=== PATIENT | female | born 1990 | race Caucasian/White ===

== ENCOUNTER → 2019-09-08 09:21 | Outpatient (CLI) | payer OTHER, SELFPAY ==
[2019-09-08 11:02] LABS: Estradiol 142.8 pg/mL; Thyroid Stim Hormone (TSH) 1.02 uIU/mL (0.358-3.74)
[2019-09-08 11:13] LABS: Progesterone Level 41.78 ng/mL (See Comment); Rubella IgG > 500.0 IU/mL
[2019-09-11 13:18] LABS: V-Zoster IgG (Immunity) 1038 index (Immune >165)
== END ==
DX: N94.6 Dysmenorrhea, unspecified (principal); N92.0 Excessive and frequent menstruation with regular cycle; N93.9 Abnormal uterine and vaginal bleeding, unspecified
CPT/HCPCS: 36415; 82670; 84144; 84443; 86762; 86787

== ENCOUNTER → 2020-04-13 09:14 | Outpatient (CLI) | payer OTHER, SELFPAY ==
[2020-04-13 10:44] LABS: hCG Titer Quant., Serum 6373 mIU/mL (1-3)
[2020-04-13 13:46] LABS: Progesterone Level 22.12 ng/mL (See Comment)
== END ==
DX: Z32.01 Encounter for pregnancy test, result positive (principal)
CPT/HCPCS: 36415; 84144; 84702

== ENCOUNTER → 2020-04-15 09:26 | Outpatient (CLI) | payer OTHER, SELFPAY ==
[2020-04-15 11:36] LABS: hCG Titer Quant., Serum 12108 mIU/mL (1-3)
== END ==
DX: Z32.01 Encounter for pregnancy test, result positive (principal)
CPT/HCPCS: 36415; 84702

== ENCOUNTER → 2020-05-18 09:59 | Outpatient (CLI) | payer OTHER, SELFPAY ==
[2020-05-18 11:34] LABS: Progesterone Level 44.65 ng/mL (See Comment)
== END ==
DX: E34.9 Endocrine disorder, unspecified (principal)
CPT/HCPCS: 36415; 84144

== ENCOUNTER 2020-06-08 15:12 | Outpatient (RCR) | payer OTHER, SELFPAY ==
[2020-06-08 16:24] LABS: Progesterone Level 53.29 ng/mL (See Comment)
== END 2020-06-12 18:00 | disposition home or self-care (01) ==
LOC: LAB 15:12
DX: E34.9 Endocrine disorder, unspecified (principal)
CPT/HCPCS: 36415; 84144

== ENCOUNTER 2020-06-22 13:06 | Outpatient (RCR) | payer OTHER, SELFPAY | END 2020-07-12 23:59 | LOC: NS 13:06 | PROVIDERS: Visit Provider Obstetrics & Gynecology | DX: Z71.3 Dietary counseling and surveillance (principal); O26.10 Low weight gain in pregnancy, unspecified trimester; O99.340 Other mental disorders complicating pregnancy, unspecified trimester; F50.9 Eating disorder, unspecified; Z3A.00 Weeks of gestation of pregnancy not specified | CPT/HCPCS: 97802 ==

== ENCOUNTER 2020-06-22 14:40 | Outpatient (RCR) | payer OTHER, SELFPAY | END 2020-06-22 18:00 | disposition home or self-care (01) | LOC: LAB 14:40 | DX: E34.9 Endocrine disorder, unspecified (principal) | CPT/HCPCS: 36415; 84144 ==

== ENCOUNTER 2020-07-18 15:27 | Outpatient (RCR) | payer OTHER, SELFPAY | END 2020-08-12 23:59 | LOC: NS 15:27 | PROVIDERS: Visit Provider Obstetrics & Gynecology | DX: Z71.3 Dietary counseling and surveillance (principal); O26.10 Low weight gain in pregnancy, unspecified trimester; O99.340 Other mental disorders complicating pregnancy, unspecified trimester; F50.9 Eating disorder, unspecified; Z3A.00 Weeks of gestation of pregnancy not specified | CPT/HCPCS: 97803 ==

== ENCOUNTER → 2020-07-20 11:35 | Outpatient (CLI) | payer OTHER, SELFPAY | PROVIDERS: Referring Provider Obstetrics & Gynecology; Visit Provider Obstetrics & Gynecology | DX: E34.9 Endocrine disorder, unspecified (principal) | CPT/HCPCS: 36415 ==

== ENCOUNTER 2020-08-03 09:26 | Outpatient (RCR) | payer OTHER, SELFPAY | END 2020-08-03 18:00 | disposition home or self-care (01) | LOC: LAB 09:26 | DX: E34.9 Endocrine disorder, unspecified (principal) | CPT/HCPCS: 36415 ==

== ENCOUNTER 2020-08-17 16:38 | Outpatient (RCR) | payer OTHER, SELFPAY | END 2020-09-11 23:59 | LOC: NS 16:38 | PROVIDERS: Visit Provider Obstetrics & Gynecology | DX: Z71.3 Dietary counseling and surveillance (principal); O26.10 Low weight gain in pregnancy, unspecified trimester; Z3A.00 Weeks of gestation of pregnancy not specified | CPT/HCPCS: 97803 ==

== ENCOUNTER 2020-08-31 13:43 | Outpatient (RCR) | payer OTHER, SELFPAY | END 2020-08-31 18:00 | disposition home or self-care (01) | LOC: LAB 13:43 | DX: E34.9 Endocrine disorder, unspecified (principal) | CPT/HCPCS: 36415 ==

== ENCOUNTER 2020-09-21 10:41 | Outpatient (RCR) | payer OTHER, SELFPAY | END 2020-09-21 18:00 | disposition home or self-care (01) | LOC: LAB 10:41 | PROVIDERS: Referring Provider Obstetrics & Gynecology; Visit Provider Obstetrics & Gynecology | DX: E34.9 Endocrine disorder, unspecified (principal) | CPT/HCPCS: 36415 ==

== ENCOUNTER → 2021-08-16 09:17 | Outpatient (CLI) | payer OTHER, SELFPAY ==
[2021-08-16 10:51] LABS: Cholesterol 180 mg/dL (200); Glucose 75 mg/dL (74-106); High Density Lipoprotein 75 mg/dL; Triglycerides 39 mg/dL; Very Low Density Lipoprotein 8 mg/dL (5-40)
== END ==
PROVIDERS: PCP Family Medicine; Referring Provider Family Medicine; Visit Provider Family Medicine
DX: Z00.00 Encounter for general adult medical examination without abnormal findings (principal)
CPT/HCPCS: 36415; 80061; 82947

== ENCOUNTER → 2021-09-26 16:12 | Outpatient (CLI) | payer OTHER, SELFPAY ==
[2021-09-26 17:29] LABS: Absolute Lymphocyte Count 1.99 X10^3/uL (0.83-4.51); Absolute Neutrophil Count 4.1 X10^3/uL (2.0-7.7); Basophil# 0.03 X10^3/uL; Basophil% 0.4 % (0-1); Eosinophil# 0.14 X10^3/uL; Eosinophils% 2.1 % (0-5); Hematocrit 38.9 % (37-47); Lymphocyte # 1.99 X10^3/ul (0.83-4.51); Lymphocyte % 29.4 % (19-41); Mean Corp Hgb Conc 33.4 g/dL (32-36); Mean Corpuscular Hgb 30.2 pg (27.0-32.0); Mean Corpuscular Volume 90.3 fL (81-99); Mean Platelet Vol. 10.9 fl (6.2-12.0); Monocyte# 0.48 X10^3/uL; Monocyte% 7.1 % (0-10); NRBC Flagged by Analyzer 0 % (0-5); Neutrophil # 4.12 X10^3/uL (2.7-7.7); Neutrophil % 60.7 % (47-70); Platelet Count 277 K/mm3 (150-450); RBC Distribution Width CV 12.3 % (11.6-14.6); RBC Distribution Width SD 41.1 fl (35.1-43.9); RET-HE 35.3 pg (30-35); Red Blood Count 4.31 M/mm3 (4.2-5.4); White Blood Count 6.8 K/mm3 (4.4-11.0)
[2021-09-26 17:46] LABS: Vitamin B12 880 pg/mL (211-911)
[2021-09-26 18:24] LABS: AST(SGOT) 15 U/L (15-37); Alanine Aminotransfer ALT/SGPT 22 U/L (13-56); Albumin, Serum 3.8 g/dL (3.2-5.0); Alkaline Phosphatase 105 U/L (45-117); Anion Gap 7 (5-15); BUN 15 mg/dL (7-18); BUN/Creat Ratio 20.5 RATIO (10-20); Bilirubin, Direct 0.09 mg/dL (0.00-0.30); Calcium,Total 8.9 mg/dL (8.5-10.1); Chloride 105 mmol/L (98-107); Creatinine, Serum 0.73 mg/dL (0.55-1.02); EST Glomerular Filtration Rate 97 mL/min (>60); Est Glom Filt Rate - Afr Amer 118 mL/min (>60); Ferritin 82 ng/mL (8-252); Free T3 2.5 pg/mL (2.18-3.98); Globulin 3.9 g/dL (2.2-4.2); Glucose 80 mg/dL (74-106); Iron 72 ug/dL (50-170); Iron Binding Capacity,Total 344 ug/dL (250-450); Magnesium 2.5 mg/dL (1.6-2.6); PERCENT IRON SATURATION 20.9 % (15.0-55.0); Potassium 3.9 mmol/L (3.5-5.1); Protein, Total 7.7 g/dL (6.4-8.2); Sodium Level 138 mmol/L (136-145); T4 Free Direct 1.15 ng/dL (0.76-1.46); Thyroid Stim Hormone (TSH) 0.93 uIU/mL (0.358-3.74)
[2021-09-28 15:08] LABS: Endomysial Antibody IgA Negative (Negative)
[2021-09-28 16:43] LABS: Immunoglobulin A 113 mg/dL (87-352); t-Transglutaminase IgA <2 U/mL (0-3)
[2021-09-30 13:11] LABS: Vitamin D 1,25-Dihydroxy 63.7 pg/mL (19.9-79.3)
[2021-10-01 14:00] LABS: CRP < 2.90 mg/L (0.0-3.0); LDH 283 U/L (84-246)
== END ==
PROVIDERS: PCP Family Medicine; Visit Provider Nurse Practitioner Adult Health
DX: K90.0 Celiac disease (principal)
CPT/HCPCS: 36415; 80048; 80076; 82607; 82652; 82728; 82746; 82784; 83516; 83540; 83550; 83615; 83735; 84439; 84443; 84481; 85025; 85045; 86140; 86255

== ENCOUNTER → 2021-10-11 15:08 | Outpatient (CLI) | payer OTHER, SELFPAY ==
[2021-10-11 16:01] LABS: Erythrocyte Sedimentation Rate 3 mm/hr (0-30)
[2021-10-11 16:24] LABS: LDH 157 U/L (84-246)
== END ==
PROVIDERS: PCP Family Medicine; Visit Provider Nurse Practitioner Adult Health
DX: R74.02 Elevation of levels of lactic acid dehydrogenase [LDH] (principal)
CPT/HCPCS: 36415; 83615; 85652

== ENCOUNTER 2023-06-10 09:24 | Outpatient (RCR) | payer OTHER, SELFPAY ==
[2023-05-13 12:55] LABS: Progesterone Level 39.97 ng/mL (See Comment)
[2023-05-27 08:15] LABS: Progesterone Level 22.69 ng/mL (See Comment)
[2023-06-10 10:42] LABS: Progesterone Level 24.73 ng/mL (See Comment)
== END 2023-06-10 18:00 | disposition home or self-care (01) ==
LOC: LAB 09:24
PROVIDERS: PCP Family Medicine; Referring Provider Obstetrics & Gynecology; Visit Provider Obstetrics & Gynecology
DX: Z86.39 Personal history of other endocrine, nutritional and metabolic disease (principal)
CPT/HCPCS: 36415; 84144

== ENCOUNTER → 2023-06-18 | Outpatient (CLI) | payer OTHER, SELFPAY ==
[2023-06-19 20:07] LABS: Chlamydia By Nucleic Acid AMP Negative (Negative); Gonococcus By Nucleic Acid AMP Negative (Negative)
== END | disposition home or self-care (01) ==
LOC: LABSPEC 11:18
PROVIDERS: PCP Family Medicine; Referring Provider Registered Nurse; Visit Provider Registered Nurse
DX: Z34.90 Encounter for supervision of normal pregnancy, unspecified, unspecified trimester (principal)
CPT/HCPCS: 87086; 87088; 87491; 87591

== ENCOUNTER 2023-07-08 09:22 | Outpatient (RCR) | payer OTHER, SELFPAY ==
[2023-06-24 09:22] LABS: Absolute Lymphocyte Count 1.95 X10^3/uL (0.83-4.51); Absolute Neutrophil Count 3.1 X10^3/uL (2.0-7.7); Basophil# 0.02 X10^3/uL; Basophil% 0.4 % (0-1); Eosinophil# 0.18 X10^3/uL; Eosinophils% 3.2 % (0-5); Hematocrit 37.5 % (37-47); Lymphocyte # 1.95 X10^3/ul (0.83-4.51); Lymphocyte % 34.8 % (19-41); Mean Corp Hgb Conc 34.7 g/dL (32-36); Mean Corpuscular Hgb 30.6 pg (27.0-32.0); Mean Corpuscular Volume 88.2 fL (81-99); Monocyte# 0.34 X10^3/uL; Monocyte% 6.1 % (0-10); NRBC Flagged by Analyzer 0 % (0-5); Neutrophil # 3.09 X10^3/uL (2.7-7.7); Neutrophil % 55.1 % (47-70); Platelet Count 249 K/mm3 (150-450); Red Blood Count 4.25 M/mm3 (4.2-5.4); White Blood Count 5.6 K/mm3 (4.4-11.0)
[2023-06-24 11:33] LABS: HIV - WCH Non-Reactive (Nonreactive); Hepatitis B Surface Antigen Non-Reactive (Nonreactive); Hepatitis C Antibody Non-Reactive (Nonreactive); Progesterone Level 23.33 ng/mL (See Comment); Rubella IgG Reactive (Nonreactive); Syphilis Antibodies Non-reactive
[2023-07-08 10:40] LABS: Progesterone Level 26.22 ng/mL (See Comment)
== END 2023-07-08 18:00 | disposition home or self-care (01) ==
LOC: LAB 09:22
PROVIDERS: Registered Nurse; PCP Family Medicine; Referring Provider Obstetrics & Gynecology; Visit Provider Obstetrics & Gynecology
DX: Z86.39 Personal history of other endocrine, nutritional and metabolic disease (principal)
CPT/HCPCS: 36415; 84144; 85025; 86703; 86762; 86780; 86803; 86850; 86900; 86901; 87340

== ENCOUNTER 2023-08-05 08:44 | Outpatient (RCR) | payer OTHER, SELFPAY ==
[2023-08-05 10:30] LABS: Progesterone Level 45.36 ng/mL (See Comment)
== END 2023-08-05 18:00 | disposition home or self-care (01) ==
LOC: LAB 08:44
PROVIDERS: PCP Family Medicine; Referring Provider Obstetrics & Gynecology; Visit Provider Obstetrics & Gynecology
DX: Z86.39 Personal history of other endocrine, nutritional and metabolic disease (principal)
CPT/HCPCS: 36415; 84144

== ENCOUNTER → 2023-08-22 | Outpatient (CLI) | payer OTHER, SELFPAY | END | disposition home or self-care (01) | LOC: LAB 10:33 | PROVIDERS: PCP Family Medicine; Referring Provider Registered Nurse; Visit Provider Registered Nurse | DX: K90.0 Celiac disease (principal) | CPT/HCPCS: 36415; 82746 ==

== ENCOUNTER 2023-09-02 08:47 | Outpatient (RCR) | payer OTHER, SELFPAY ==
[2023-09-02 09:44] LABS: Progesterone Level 55.73 ng/mL (See Comment)
== END 2023-09-11 18:00 | disposition home or self-care (01) ==
LOC: LAB 08:47
PROVIDERS: PCP Family Medicine; Referring Provider Obstetrics & Gynecology; Visit Provider Obstetrics & Gynecology
DX: Z86.39 Personal history of other endocrine, nutritional and metabolic disease (principal)
CPT/HCPCS: 36415; 84144

== ENCOUNTER 2023-09-16 09:12 | Outpatient (RCR) | payer OTHER, SELFPAY ==
[2023-09-16 13:32] LABS: Progesterone Level 62.62 ng/mL (See Comment)
== END 2023-10-12 18:00 | disposition home or self-care (01) ==
LOC: LAB 09:12
PROVIDERS: PCP Family Medicine; Referring Provider Obstetrics & Gynecology; Visit Provider Obstetrics & Gynecology
DX: Z86.39 Personal history of other endocrine, nutritional and metabolic disease (principal)
CPT/HCPCS: 36415; 84144

== ENCOUNTER 2023-10-28 08:55 | Outpatient (RCR) | payer OTHER, SELFPAY ==
[2023-10-14 09:48] LABS: Progesterone Level 117.31 ng/mL (See Comment)
[2023-10-28 11:12] LABS: Progesterone Level 155.53 ng/mL (See Comment)
== END 2023-10-28 18:00 | disposition home or self-care (01) ==
LOC: LAB 08:55
PROVIDERS: PCP Family Medicine; Referring Provider Obstetrics & Gynecology; Visit Provider Obstetrics & Gynecology
DX: Z86.39 Personal history of other endocrine, nutritional and metabolic disease (principal)
CPT/HCPCS: 36415; 84144

== ENCOUNTER → 2023-10-30 | Outpatient (CLI) | payer OTHER, SELFPAY ==
--- OUTSIDE RECORDS SUMMARY | 2023-10-30 08:07 | XMS RPT_ITS | CCD ---
Author Name Unknown Address [address] [place] [address] Organization [facility] Care Team Providers Care Food Services Director Name Role Phone NO PRIMARY CARE, Primary Care Unavailable STEPHANIE LUNA Referring MIRLANDE Montgomery Attending Unavailable Allergies Allergy Classification Reported Allergen(s) Allergy Type Date of Onset Reaction(s) Facility (1 source) Codeine; Translations: [CODEINE] Drug Allergy 09-24-2018 [facility] Repository Results Test Name Value Interpretation Reference Range Facil ity Encounters Encounter Date Encounter Type Care Provider Facility Start: 08-26-2023 End: 08-26-2023 ambulatory MD [facility] pital Payers Date Payer Category Payer Unknown [id number] Unknown [id number] Progress note 12-09-2020 Note Date & Type Note Facility 12-09-2020 Note HNO ID: [id number] Author: Cindy Merida Service: ? Author Type: Nurse Practitioner Type: Progress Notes Filed: 12/09/2020 12:00 PM Note Text: Subjective HPI Jerica Laureano is a 30 year old female who presents with pressure and some pain in her right ear for the past week. Has been unable to hear very well from right ear. Has been using wax softening drops at home. Review of Systems Constitutional: Negative for fever. HENT: Positive for ear pain and hearing loss. Negative for congestion, ear discharge, sore throat and tinnitus. Respiratory: Negative for cough. BP 104/82 Pulse 109 Temp 37 ?C (98.6 ?F) (Left Tympanic) Resp 16 Wt 58.2 kg (128 lb 3.2 oz) LMP 03/06/2020 (Exact Date) SpO2 97% BMI 24.22 kg/m? PAST MEDICAL HISTORY Diagnosis Date - Anemia - Celiac disease - depression anxiety - Infertility, female PAST SURGICAL HISTORY Procedure Laterality Date - HYSTEROSCOPY 05/2017 abnormal findings - IMPLANTS dental implants ALLERGIES Codeine MEDICATIONS FISH OIL-DHA-EPA ORAL Take by mouth. wax422/iron/folic/dha ( FORMULA-DHA ORAL) Take by mouth. progesterone micronized (PROMETRIUM) 200 mg capsule Take on peak ovulation and continue for 10 days each cycle FAMILY HISTORY Problem Relation Age of Onset - Arthritis Mother - No Known Problems Father - other (overweight) Sister - other (Other) Sister - Arthritis Maternal Grandmother - Heart Attack Maternal Grandmother - Colon Cancer Maternal Grandfather - other (celiac disease) Maternal Grandfather - Dementia Paternal Grandmother - Heart Paternal Grandfather Social History Tobacco Use - Smoking status: Never Smoker - Smokeless tobacco: Never Used Substance Use Topics - Alcohol use: Not Currently Comment: wine on occ - Drug use: No Objective Physical Exam Constitutional: She is oriented to person, place, and time and well-developed, well-nourished, and in no distress. HENT: Right Ear: External ear and ear canal normal. Left Ear: External ear and ear canal normal. Bilateral ears: Cerumen impairs exam of clinically significant portions of the external auditory canal, tympanic membrane or middle ear condition. Neurological: She is alert and oriented to person, place, and time. Skin: Skin is warm and dry. Nursing note and vitals reviewed. ASSESSMENT/PLAN: 1. Bilateral impacted cerumen - ICD9: 380.4, ICD10: H61.23 - PERS HLTH MGMT EAR WAX REMOVAL - Cerumen removed via irrigation, patient tolerated procedure well. Post procedure Bilateral ear canals are clear and TMs well visualized with bony landmarks intact and no sign of inflammation/infection. - Follow-up with your PCP in 3-5 days if symptoms have not improved or sooner if symptoms worsen - Discussed red flags and need for immediate medical evaluation if any occur. Cindy Merida APRN.[facility] Summary Purpose Family History No Family History Records FoundNo Family History Records FoundNo Family History Records Found Advance Directives No Advanced Directives Records FoundNo Advanced Directives Records FoundNo Advanced Directives Records Found Additional Source Comments INFORMATION SOURCE (unrecogn ized section and content) DATE CREATED AUTHOR AUTHOR'S ORGANIZ ATION 11/20/2021 [facility] DATE CREATED AUTHOR AUTHOR'S JURGEN ATION 08/27/2023 [facility] FOR RECORDS PERTAINING TO PATIENTS WHO ARE OR HAVE BEEN ENROLLED IN A CHEMICAL DEPENDENCY/SUBSTANCEABUSE PROGRAM, SOME INFORMATION MAY BE OMITTED. This clinical summary was aggregated from multiple sources. Caution should be exercised in using it in the provision of clinical care. This summary normalizes information from multiple sources, and as a consequence, information in this document may materially change the coding, format and clinical context of patient data. In addition, data may be omitted in some cases. CLINICAL DECISIONS SHOULD BE BASED ON THE PRIMARY CLINICAL RECORDS. [facility]. provides no warranty or guarantee of the accuracy or completeness of information in this document.
[2023-10-30 08:24] LABS: Absolute Lymphocyte Count 1.45 X10^3/uL (0.83-4.51); Absolute Neutrophil Count 4.2 X10^3/uL (2.0-7.7); Basophil# 0.03 X10^3/uL; Basophil% 0.5 % (0-1); Eosinophil# 0.18 X10^3/uL; Eosinophils% 2.8 % (0-5); Hematocrit 34.1 % (37-47); Hemoglobin 10.7 g/dL (12.0-15.0); Lymphocyte # 1.45 X10^3/ul (0.83-4.51); Lymphocyte % 22.7 % (19-41); Mean Corp Hgb Conc 31.4 g/dL (32-36); Mean Corpuscular Hgb 28.8 pg (27.0-32.0); Mean Corpuscular Volume 91.7 fL (81-99); Mean Platelet Vol. 11.7 fl (6.2-12.0); Monocyte# 0.44 X10^3/uL; Monocyte% 6.9 % (0-10); NRBC Flagged by Analyzer 0 % (0-5); Neutrophil # 4.24 X10^3/uL (2.7-7.7); Neutrophil % 66.5 % (47-70); Platelet Count 150 K/mm3 (150-450); RBC Distribution Width CV 13.9 % (11.6-14.6); RBC Distribution Width SD 45.6 fl (35.1-43.9); Red Blood Count 3.72 M/mm3 (4.2-5.4); White Blood Count 6.4 K/mm3 (4.4-11.0)
[2023-10-30 09:05] LABS: Glucose Challenge Gest 1H 50g 125 mg/dL (70-140)
[2023-10-30 09:26] LABS: HIV - WCH Non-Reactive (Nonreactive); Syphilis Antibodies Non-reactive
== END | disposition home or self-care (01) ==
LOC: PAVLAB 07:51
PROVIDERS: PCP Family Medicine; Referring Provider Obstetrics & Gynecology; Visit Provider Obstetrics & Gynecology
DX: Z34.90 Encounter for supervision of normal pregnancy, unspecified, unspecified trimester (principal)
CPT/HCPCS: 36415; 82950; 85025; 86703; 86780

== ENCOUNTER → 2023-12-30 | Outpatient (CLI) | payer OTHER, SELFPAY | END | disposition home or self-care (01) | LOC: LABSPEC 11:12 | PROVIDERS: PCP Family Medicine; Referring Provider Advanced Practice Midwife; Visit Provider Advanced Practice Midwife | DX: Z34.90 Encounter for supervision of normal pregnancy, unspecified, unspecified trimester (principal) | CPT/HCPCS: 87081 ==

== ENCOUNTER 2024-01-19 12:00 | Outpatient (CLI) | payer OTHER, SELFPAY ==
[2024-01-19 12:21] VITALS: BP 130/79; PULSE 68; RESP 16; TEMP 36.5
[2024-01-19 12:31] VITALS: BMI 21.9
--- NOTE | 2024-01-19 13:28 | OB.TRI.HP_ITS ---
HPI - General HPI Narrative ROCHELLE LAUREANO, is a 33 F who presents to L&D for an NST due to bpp of 03/20. Maternal Data Information MONIQUE Calculator Estimated Delivery Date Method Current WG Current Estimate 01/21/24 LMP (Certain) 39w 5d PFSH PFSH Medical History Allergies Anemia Celiac disease Celiac disease Depression Home Medications lactobacillus combination no.4 3 billion cell capsule (Probiotic) 3,000 mmu cells PO DAILY 09/26/21 [History Last Taken Unknown] vitamin with calcium no.72-iron 27 mg-folic acid 1 mg tablet (M-Jason Plus) 1 tab PO DAILY 09/26/21 [History Last Taken 01/18/24 21:00 1 TAB] magnesium gluconate 12.5 mg magnesium (250 mg) tablet 250 mg PO DAILY 01/19/24 [History Last Taken 01/18/24 07:00 250 mg] iatikbak-jnw-nvlrsna gluconate 10 mg PO BID 01/19/24 [History Last Taken 01/19/24 07:00 10mg] Allergy/AdvReac Type Severity Reaction Status Date / Time codeine Allergy Intermediate vomiting Verified 01/19/24 12:25 gluten Allergy Severe Vomiting Uncoded 01/19/24 09:48 Family History Grandfather Colon cancer Grandfather Heart disease Grandfather Heart disease Other Endometriosis Surgical History History of hysteroscopy Hx of bladder endoscopy Social History adopted: No household members: spouse and children number of children: 1 current occupational status: unemployed sexually active: Yes Smoking Status: Never smoker alcohol intake: current details: when not caffeine: No what type of physical activity do you participate in: walking and aerobics seatbelt use: always do you feel safe at home: Yes additional social history: 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 Date Name GA/Weeks Outcome Route Bth Weight Gen Labor Lgth Anesthesia Del Locatn Provider FOB Unknown Katia 40 live - full term 6#5oz Female ju[facility]ur [facility] Visit Details Expected Delivery Route/Plan Labor Preferences- CB/BF classes: desires just breath class labor support person: Indy and a thomas Sands labor intervention preferences: prefers minimal pain management options preferred: IA, hydrotherapy, limited intervention preferred, please ask for touch- incorporate for hands on, doesn't prefer pressure points. open to prayer, movement, breathing techniques. prefers more calm cut cord/dad catch: cord :yes, still nursing daughter PP control planned: discussed possible routes of delivery and associated risks: discussed possible delivery modalities and possible indications for each including R/B/A of , VAVD, and CS. questions answered. special requests: [] Plans Covid status: declined Flu vaccine: declined Tdap vaccine: declines Rhogam: na LARC form signed: yes Problem list reviewed and updated with the most current plan of care details and appropriate orders placed. Relevant counseling for the gestational age provided. Continue routine care and follow up unless otherwise noted in visit notes/problem list details OB Flowsheet Initial Weight: 100 lb Date -?-?-?-?-?-?-?-?-?-?-?-?- EGA Weight BP Urine Prot -?-?-?-?-?--?-?-?-?-?-?-?- Glucose FHR FuHt Pres Dilation -?-?-?-?-?-?-?-?-?-?-?--?- Effaced St Visit Note 06/18/23 -?-?-?-?-?-?-?-?-?-?-?-?- 9w 0d 100 lb 6 oz (+6 oz) 108/69 -?-?-?-?-?-?-?-?-?-?-?-?- 180 -?-?-?-?-?-?-?-?-?-?-?-?- LC- LMP con with CRL MONIQUE 01/21/2024. accepts genetic screening. 07/16/23 -?-?-?-?-?-?-?-?-?-?-?-?- 13w 0d 101 lb 4 oz (+1 lb 4 oz) 115/77 Negative -?-?-?-?-?-?-?-?-?-?-?-?- Negative 156 -?-?-?-?-?-?-?-?-?-?-?-?- LC- normal nob l abs. no concerns today. declines afp. had folate and vit b levels drawn with dr. solorzano office will obtain results. mfm ultrasound ordered for anatomy LC- normal nob labs. did not yet obtain genetics. no concerns today. declines afp. had folate and vit b levels drawn with dr. solorzano office will obtain results. mfm ultrasound ordered for anatomy 08/15/23 -?-?-?-?-?-?-?-?-?-?-?-?- 17w 2d 108 lb 2 oz (+8 lb 2 oz) 103/69 Negative -?-?-?-?-?-?-?-?-?-?-?-?- Negative 145 -?-?-?-?-?-?-?-?-?-?-?-?- SM- no vb crampi ng 09/08/23 -?-?-?-?-?-?-?-?-?-?-?-?- 20w 5d 113 lb (+13 lb) 117/75 Negative -?-?-?-?-?-?-?-?-?-?-?-?- Negative 140 -?-?-?-?-?-?-?-?-?-?-?-?- Lc- no vb, some right sided cramping, likely round ligament pain. normal anatomy scan. will be using fresh test for glucose 10/08/23 -?-?-?-?-?-?-?-?-?-?-?-?- 25w 0d 118 lb 2 oz (+18 lb 2 oz) 109/71 Negative -?--?-?-?-?-?-?-?-?-?-?-?- Negative 143 24 -?-?-?-?-?-?-?-?-?-?-?-?- JV- no lof, vagi nal bleeding or dec fm JV- no lof, vaginal bleeding or dec fm. doing fresh test. interested in birthing plan an classes. 10/30/23 -?-?-?-?-?-?-?-?-?-?-?-?- 28w 1d 124 lb 2 oz (+24 lb 2 oz) 106/75 Negative -?-?--?-?-?-?-?-?-?-?-?-?- Negative 135 28 -?-?-?-?-?-?-?-?-?-?-?-?- kw-no vb/lof/ctx . good fm. recommend to start iron. kw-no vb/lof/ctx. good fm. r ecommend to start iron. Declines tdap today. 11/14/23 -?-?-?-?-?-?-?-?-?-?-?-?- 30w 2d 125 lb 6 oz (+25 lb 6 oz) 116/78 Negative -?-?-?-?-?-?-?-?-?-?-?-?- Negative 150 30 -?-?-?-?-?-?-?-?-?-?-?-?- LC- no vb/ctx/lo f. good fm. reviewed pp care. to start on floradix, hasnt started an iron yet. 11/24/23 -?-?-?-?-?-?-?-?-?-?-?-?- 31w 5d 127 lb (+27 lb) 110/70 Negative -?-?-?-?-?-?-?-?-?-?-?-?- Negative 140 32 -?-?-?-?-?-?-?-?-?-?-?-?- MH-No VB, LOF. G ood FM. Denies concerns 12/11/23 -?-?-?-?-?-?-?-?-?-?-?-?- 34w 1d 125 lb (+25 lb) 119/86 -?-?-?-?-?-?-?-?-?-?--?-?- 140 34 -?-?-?-?-?-?-?-?-?-?-?-?- SM- no vb lof go od fm no regular ctx SM- no vb lof good fm no reg ular ctx discussed delivery preferences 12/22/23 -?-?-?-?-?-?-?-?-?-?-?-?- 35w 5d 127 lb 4 oz (+27 lb 4 oz) 111/78 Negative -?-?-?-?-?-?-?-?-?-?-?-?- Negative 145 35 -?-?-?-?-?-?-?-?-?-?-?-?- LC- no vb/ctx/lo f. good fm. preferences reviewed. desires low intervention 12/30/23 -?-?-?-?-?-?-?-?-?-?-?-?- 36w 6d 128 lb 2 oz (+28 lb 2 oz) 123/79 Negative -?-?-?-?-?-?-?-?-?-?-?-?- Negative 135 36 -?-?-?-?-?-?-?-?-?-?-?-?- KW- no vb/lof/ct x. good fm. good fm. GBS today. declines VE 01/05/24 -?-?-?-?-?-?-?-?-?-?-?-?- 37w 5d 129 lb (+29 lb) 114/70 Negative -?-?-?-?-?-?-?-?-?-?-?-?- Negative 138 36 -?-?-?-?-?-?-?-?-?-?-?-?- LC- no vb/ctx/lo f. good fm.declines VE today. 01/14/24 -?-?-?-?-?-?-?-?-?-?-?-?- 39w 0d 128 lb (+28 lb) 119/82 Negative -?-?-?-?-?-?-?-?-?-?-?-?- Negative 15 38 -?-?-?-?-?-?-?-?-?-?-?-?- JV- pt declines ve today. labor plan discussed. no lof, vaginal bleeding, or dec fm. 01/19/24 -?-?-?-?-?-?-?-?-?-?-?-?- 39w 5d 128 lb (+28 lb) 116/81 -?-?-?-?-?-?-?-?-?-?-?-?- 150 35 -?-?-?-?-?-?-?-?-?-?-?-?- Sm- no vb lof go od fm no regular ctx check growth US now NST FHR Rate Baby A Baseline: 140 Variability:: Moderate Accelerations:: 15 x 15 Decelerations:: None NST Reactive:: Yes FHR Category:: Category I Assessment & Plan (1) Uterine size-date discrepancy, third trimester: COMMENT: growth us (2) AMA (advanced maternal age) multigravida 35+: COMMENT: growth US ordered. nst and counseled regarding options and patient prefers expectant management if reassuring, plan IOL by 41 if reassuring (3) Anemia in preg-unspec: QUALIFIERS: Trimester: second trimester Qualified Code(s): O99.012 - Anemia complicating , second trimester COMMENT: taking FE (4) Low serum progesterone: COMMENT: managed and given IM progesterone by Dr. Ball until 2nd trimester. reviewed with patient recommending stopping in second trimester. has stopped. (5) Supervision of high-risk : QUALIFIERS: Trimester: third trimester Qualified Code(s): O09.93 - Supervision of high risk , unspecified, third trimester COMMENT: PRR MONIQUE 01/21/2024 SURPRISE BABY!! PC: Katia : Nirmala (6) : QUALIFIERS: Weeks of gestation: 39 weeks Qualified Code(s): Z3A.39 - 39 weeks gestation of COMMENT: GBS neg, anatomy normal. genetic screening declined, carrier and afp declined. PLAN: Plan reactive nst. return to office friday for discussion about IOL. Charges/Coding Multi Select Codes Urinary/Genital Urinary/Genital CPT Codes: 71772-42 non-stress test Interp
== END 2024-01-19 13:20 | disposition home or self-care (01) ==
LOC: WPOUT 12:04 → WP 12:04
PROVIDERS: PCP Family Medicine; Referring Provider Obstetrics & Gynecology; Visit Provider Obstetrics & Gynecology
DX: O09.523 Supervision of elderly multigravida, third trimester (principal); O99.013 Anemia complicating pregnancy, third trimester; Z3A.39 39 weeks gestation of pregnancy
CPT/HCPCS: 59025; 59050; 99221; G0378

== ENCOUNTER → 2024-01-19 | Outpatient (CLI) | payer OTHER, SELFPAY ==
--- NOTE | 2024-01-19 10:43 | US_ITS ---
STUDY: OBSTETRICAL ULTRASOUND - BIOPHYSICAL PROFILE REASON FOR EXAM: Female, 33 years old uterine size-date discrepancy LMP: April 16, 2023. PRIOR ULTRASOUND: None. TECHNIQUE: Transabdominal TECHNICAL QUALITY: Adequate. FINDINGS: There is a single intrauterine fetus. The fetus is in a cephalic presentation. There is demonstrated cardiac activity with a heart rate of 131 bpm. There is a normal amniotic fluid volume. The largest amniotic fluid pocket measures 4.4 cm. The amniotic fluid index (FIGUEROA) is 11.9 cm. The placenta is anterior in location and is not low lying. There are Grade 1 placental changes. Age by LMP: 39 weeks, 5 days. MONIQUE by LMP: January 21, 2024. age by prior US: 39 weeks, 0 days. MONIQUE by prior US: January 26, 2024. BIOPHYSICAL PROFILE: Breathing Movements (FBM): 0 Gross Body Movements (GBM): 2 Tone (FT): 2 Amniotic Fluid Volume (AFV): 2 TOTAL SCORE: 6 / 8 IMPRESSION: biophysical profile of 6/8. Referring physician was notified. Electronically Signed: Arnulfo Dow MD at 12:16 EDT , STUDY: SECOND AND THIRD TRIMESTER OBSTETRICAL ULTRASOUND - LIMITED REASON FOR EXAM: Female, 33 years old uterine size-date discrepancy LMP: April 16, 2023. PRIOR ULTRASOUND: None. TECHNIQUE: Transabdominal TECHNICAL QUALITY: Adequate. FINDINGS: There is a single intrauterine fetus. The fetus is in a cephalic presentation. There is demonstrated cardiac activity with a heart rate of 131 bpm. There is a normal amniotic fluid volume. The largest amniotic fluid pocket measures 4.4 cm. The amniotic fluid index (FIGUEROA) is 11.9 cm. The placenta is anterior in location and is not low lying. There are Grade 1 placental changes. The cervix was not measured due to head position. BIOMETRY: BPD: 9.87 cm: 40 weeks, 3 days HC: 34.96 cm: 40 weeks, 5 days AC: 33.13 cm: 37 weeks, 0 days FL: 7.17 cm: 36 weeks, 5 days Age by LMP: 39 weeks, 5 days. MONIQUE by LMP: January 21, 2024. age by current US: 39 weeks, 0 days. MONIQUE by current US: January 26, 2024 Estimated weight: 3286 grams, +/- 493 grams, 27 percentile. US/Biophysical Prof W/O Non Stres IMPRESSION: Single live intrauterine gestation with a mean gestational age of 39 weeks. Electronically Signed: Arnulfo Dow MD at 12:23 EDT ,
== END | disposition home or self-care (01) ==
PROVIDERS: PCP Family Medicine; Referring Provider Obstetrics & Gynecology; Visit Provider Obstetrics & Gynecology
DX: O26.843 Uterine size-date discrepancy, third trimester (principal); Z3A.00 Weeks of gestation of pregnancy not specified
CPT/HCPCS: 76816; 76819

== ENCOUNTER 2024-01-23 06:18 | Inpatient (IN) | payer OTHER, SELFPAY ==
[2024-01-23] VITALS (33 sets, daily range): BP systolic 120–186; BP diastolic 75–109; PULSE 75–206; RESP 16; TEMP 36.2–36.9; O2SAT 92–100; BMI 23.8
[2024-01-23 07:10] LABS: Absolute Lymphocyte Count 1.51 X10^3/uL (0.83-4.51); Absolute Neutrophil Count 4.5 X10^3/uL (2.0-7.7); Basophil# 0.02 X10^3/uL; Basophil% 0.3 % (0-1); Eosinophil# 0.02 X10^3/uL; Eosinophils% 0.3 % (0-5); Hematocrit 40.7 % (37-47); Hemoglobin 13.7 g/dL (12.0-15.0); Lymphocyte # 1.51 X10^3/ul (0.83-4.51); Lymphocyte % 23.4 % (19-41); Mean Corp Hgb Conc 33.7 g/dL (32-36); Mean Corpuscular Hgb 30.9 pg (27.0-32.0); Mean Corpuscular Volume 91.7 fL (81-99); Monocyte# 0.33 X10^3/uL; Monocyte% 5.1 % (0-10); NRBC Flagged by Analyzer 0 % (0-5); Neutrophil # 4.54 X10^3/uL (2.7-7.7); Neutrophil % 70.3 % (47-70); POSITIVE COUNT YES; Platelet Count 94 K/mm3 (150-450); RBC Distribution Width CV 13.8 % (11.6-14.6); RBC Distribution Width SD 46.8 fl (35.1-43.9); Red Blood Count 4.44 M/mm3 (4.2-5.4); White Blood Count 6.5 K/mm3 (4.4-11.0)
[2024-01-23 07:15] LABS: Differential Indicated SCAN CRITERIA MET
[2024-01-23] MEDS: Acetaminophen 500 MG Tablet PO (07:31)
[2024-01-23] MEDS: Naproxen 500 MG Tablet PO ×2 (08:06→16:27)
[2024-01-23] MEDS: Benzocaine/Lanolin/Aloe Vera 1 SPRAY EACH TOPICAL (08:11)
[2024-01-23 08:50] LABS: Syphilis Antibodies Non-reactive
[2024-01-23 08:52] LABS: Differential Comment SCANNED; Platelet Estimate SLT DEC (ADEQ); Platelet Morphology LARGE
[2024-01-23] MEDS: Acetaminophen 500 MG Tablet 1000 MG PO ×2 (13:27→20:17)
--- NOTE | 2024-01-23 16:06 | CASEMGMT ---
Social Work Assessment Labor and Delivery Unit Patient Address: [place] [address] Phone number: [phone] Date of Referral: 01/23/24 Time of Referral:?[id number] Referred By: Indira Leal Date of Intervention: ?01/23/24? Time of Intervention:? 1400 Reason for Referral:? history of depression while in high school, was previously on medication Sw completed chart review and acknowledges social work consult due to maternal mental health history. SDOH was also triggered, sw asked mother of baby (JENNIFER Pizano) to complete SDOH questionnaire as well. Sw presented to bedside and introduced self to mother of baby (JENNIFER Pizano) and father of baby (FER- Arie). Sw explained sw role during hospitalization and reason for sw consult. Parents express understanding and willingness to complete assessment. History obtained from: medical records, MOB and FOB Household composition: Currently residing in the family home is FER TAFOYA, their three year old daughter, Katia and now baby when ready for discharge. Parents deny any housing concerns. Patient's parent/guardian status:? ?Parents report that they met online and have been together for 10 years. No concerns with domestic violence or intimate partner violence. LOTTIE states that FER is a good support to her and attentive to her physical and mental needs. Medical History: ?LOTTIE is 33 year old female who is 2, apra 1- now 2 following labor and delivery of . LOTTIE received routine care during with [place]. LOTTIE presented to hospital and delivered baby on 01/23/24 via vaginal delivery at 40 weeks gestation. Baby boy, named Cody Warner, was born weighing 7lb 6oz with apgars of 8 and 9 at one and five minutes of life respectfully. LOTTIE states that she is breast feeding and so far it has gone okay. LOTTIE states that baby will be followed by Dr. Yang for pediatrics. Educational Status:? Both parents graduated from high school. FER obtained a PHD, and LOTTIE obtained her Masters degree. No concerns with reading, learning or comprehension. 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 LOTTIE stays at home. Infant Supplies:?? Parents have obtained all necessary baby supplies, including: car seat, safe sleep space, clothes, diapers and wipes. Childcare/Caregiver(s):? LOTTIE will be the primary caregiver to baby along with FOSusie. MOB states that her mother has also come to town for the past couple of weeks and will be staying to help. Transportation:?? Both parents have their drivers license and reliable means of transportation. No barriers at this time. Programs/Agencies Involved: Parents are over income for community agencies that provide financial assistance. MOB states that she is in the process of getting connected to mental health counseling providers to help her during her period. ??? Children Services/Legal Issues:?No history of involvement, no issues or concerns warranting referral to be made at this time. ?? Behavioral Health Issues: ??Mental Health History:?FOSusie denies any mental health diagnoses. MOB states that she was diagnosed with depression in school. MOB states that she did not struggle with her mental health following her first baby being born. MOB states that she did struggle with just the transition of becoming a first time mom and navigating life with a . ?? Substance Use History:?MOB denies substance use prior to and during . ? Family History:?Parents deny substance use or addiction issues, and also deny mental health diagnoses such as bipolar or schizophrenia. ? Drug Screens: ??No drug screens observed in chart review. Family/Social Stressors:? Parents deny any issues or stressors at this time. MOB states that she is nervous to go home and navigate life with a three year old and a . Much support and information provided. Support Systems: LOTTIE states that FOB and both grandmas are her biggest supports. Depression/Shaken Baby/Safe Sleeping:? Sw educated parents on signs and symptoms of baby blues and depression and anxiety. Parents express understanding. Sw educated parents on shaken baby prevention and ABCs of safe sleep. Parents express understanding. ASSESSMENT:? MOB and baby admitted following labor and delivery of . MOB with history of depression but denies history of depression or anxiety. Parents report that they are familiar of signs and symptoms to be on the lookout for. Parents have obtained all necessary baby supplies and have natural supports in place. LOTTIE is looking into counseling agencies that she can utilize during this period just for additional support and to have in place in the circumstance that she would struggle with her mental health during this period. FOB observed to provide loving and appropriate hands on care of . Parents were appreciative of support provided by sw and list of resources provided. PLAN:? MOB and baby to be discharged when medically ready. ?No other services requested or indicated. Dusty Patino, NEWS COMMENTATOR, [employer]
[2024-01-24 00:51] VITALS: BP 124/93; PULSE 80; RESP 16; TEMP 36.7; O2SAT 97
[2024-01-24 03:36] VITALS: BP 108/81; PULSE 100; RESP 17; TEMP 36.2; O2SAT 97
[2024-01-24 08:15] VITALS: BP 120/86; PULSE 89; RESP 15; TEMP 36.9
--- NOTE | 2024-01-24 09:00 | PCM.PN.OB ---
Subjective Subjective Patient doing well without complaints. Tolerating PO. Ambulating and voiding without difficulty. Feeding well. Denies chest pain, shortness of breath, calf pain/swelling, fevers, chills, lightheadedness. Objective Data Objective Data Vital Signs: Vital Signs Temp Pulse Resp BP Pulse Ox O2 Del Method 98.4 F 89 15 120/86 H 97 Room Air 01/24/24 08:15 01/24/24 08:15 01/24/24 08:15 01/24/24 08:15 01/24/24 03:36 01/24/24 08:15 Oxygen Delivery Method Room Air Weight: 126 lb Body Mass Index (BMI) 23.8 Intake & Output: Intake and Output for Last 24 Hours 01/22/24 01/23/24 01/24/24 23:59 23:59 23:59 Output Total 750 / 750 Balance -750 / -750 Lab / Micro Data 01/23/24 07:00 Labs: Laboratory Results - last 24 hr 01/23/24 07:00: Blood Type A POSITIVE, Antibody Screen NEGATIVE ROS Constitutional Constitutional: Denies chills, fatigue, fever(s), poor appetite or weakness Eyes Eyes: Denies blurry vision, change in vision, seeing flashes or spots in vision ENT HEENT: Denies dizziness, headache(s), loss taste/smell or sore throat Cardiovascular Cardiovascular: Denies chest pain, dizziness, dyspnea, irregular heart rhythm, palpitations or rapid heart rate Respiratory/Chest Respiratory/Chest: Denies chest tightness, cough, dyspnea or breast pain Gastrointestinal Gastrointestinal: Denies abdominal pain, constipation or vomiting Genitourinary Genitourinary: Denies dysuria or flank pain Musculoskeletal Musculoskeletal: Denies difficulty walking, joint pain, limited range of motion or numbness Neurologic Neurologic: Denies abnormal movements, abnormal speech, dizziness, numbness, seizure-like activity or syncope Psychiatric Psychiatric: Denies anxiety, behavioral changes, change in appetite, confusion, depression or suicidal thoughts Physical Exam Const alert, oriented x3 and no apparent distress General Appearance: cooperative and comfortable Resp normal respiratory effort Cardio regular rate GI normal to inspection, nondistended, normoactive bowel sounds GI Narrative: uterus is firm below umbilicus Palpation: soft Back/Spine no CVA tenderness and thoraco-lumbar ROM normal Extremity normal to inspection, no clubbing, cyanosis or edema, no calf tenderness and no pedal edema Psych mental status grossly normal, thought process normal, cooperative, affect normal, speech normal, activity/motor behavior normal, denies homicidal ideation and denies suicidal ideation Assessment & Plan (1) Uterine size-date discrepancy, third trimester: COMMENT: growth us (2) AMA (advanced maternal age) multigravida 35+: COMMENT: growth US ordered. nst and counseled regarding options and patient prefers expectant management if reassuring, plan IOL by 41 if reassuring (3) Anemia in preg-unspec: QUALIFIERS: Trimester: second trimester Qualified Code(s): O99.012 - Anemia complicating , second trimester COMMENT: taking FE (4) Low serum progesterone: COMMENT: managed and given IM progesterone by Dr. Ball until 2nd trimester. reviewed with patient recommending stopping in second trimester. has stopped. (5) Status post vaginal delivery: PLAN: s/p PPD # 1 1. routine post delivery care 2. breast feeding- support given 3. rh positive 4. rubella immune 5. dc to home today when patient is ready
--- NOTE | 2024-01-24 09:02 | DCINST_ITS ---
Discharge Instructions Diet Discharge Diet: No restrictions Activity Discharge Activity: Return to Normal Activity, May Not Drive (while taking narcotic pain medications.) and May Shower May resume sexual activity in: 4-6 weeks Dressing / Incision Call your doctor if your incision/area has: Continuous Slow Oozing, Sudden Increased Bleeding, Increased Pain/ Swelling, Increased Redness and Foul Smelling Discharge Follow Up Care Please Follow Up With: Thalia Robb DO When: Call [phone] to make an appointment with your doctor in 6 weeks. If you had elevated blood pressure or 4th degree laceration, you will need to be seen in 2 weeks. Test Results: Test results from this visit will be discussed in further detail at your follow- up appointment, if applicable. Discharge Plan Admission Admit Date/Time: 01/23/24 06:18 Primary Reason for Your Visit: vaginal delivery Attending Provider: Indira Leal Primary Care Provider: Lachelle Mo Discharge Orders/Prescriptions Prescriptions: Continued Probiotic 3 billion cell capsule 3,000 mmu cells PO DAILY Rx Instructions: administer with a meal M- Plus 27 mg iron- 1 mg tablet 1 tab PO DAILY magnesium gluconate 12.5 mg magne- sium (250 mg) tablet 250 mg PO DAILY igsuradi-ajd-twlviil gluconate 10 mg PO BID Referrals / Follow Up: Lachelle Mo MD [Primary Care Provider] - Disposition Disposition (needs filled in before D/C Order can be placed): Home, Self Care
[2024-01-24] MEDS: Acetaminophen 500 MG Tablet 1000 MG PO (11:06)
[2024-01-24 13:56] VITALS: BP 130/81; PULSE 90; RESP 16; TEMP 36.6; O2SAT 97
--- NOTE | 2024-01-29 17:08 | HP.PCM.OB_ITS ---
HPI - General General Date of Admission: 01/23/24 HPI Narrative ROCHELLE LAUREANO, is a 33 F who presents IAL and delivered precipitously within a few minutes of arrival to the unit. FHT present and reassuring for the few minutes prior to . DOS 01/23/24 Maternal Data Information MONIQUE Calculator Estimated Delivery Date Method Current WG Current Estimate 01/21/24 LMP (Certain) 41w 1d PFSH PFSH Medical History Allergies Anemia Celiac disease Celiac disease Depression Home Medications lactobacillus combination no.4 3 billion cell capsule (Probiotic) 3,000 mmu cells PO DAILY 09/26/21 [History Last Taken Unknown] vitamin with calcium no.72-iron 27 mg-folic acid 1 mg tablet (M- Plus) 1 tab PO DAILY 09/26/21 [History Last Taken 01/18/24 21:00 1 TAB] magnesium gluconate 12.5 mg magnesium (250 mg) tablet 250 mg PO DAILY 01/19/24 [History Last Taken 01/18/24 07:00 250 mg] dzhfosoq-exv-dlsrdfm gluconate 10 mg PO BID 01/19/24 [History Last Taken 01/19/24 07:00 10mg] ibuprofen 800 mg tablet 800 mg PO Q8H PRN pain #30 tabs 01/24/24 [Rx Last Taken Unknown] Allergy/AdvReac Type Severity Reaction Status Date / Time gluten Allergy Severe Vomiting Verified 01/23/24 06:51 codeine Allergy Intermediate vomiting Verified 01/19/24 12:25 Family History Grandfather Colon cancer Grandfather Heart disease Grandfather Heart disease Other Endometriosis Surgical History History of hysteroscopy Hx of bladder endoscopy Social History adopted: No household members: spouse and children number of children: 1 current occupational status: unemployed sexually active: Yes Smoking Status: Never smoker alcohol intake: current details: when not caffeine: No what type of physical activity do you participate in: walking and aerobics seatbelt use: always do you feel safe at home: Yes additional social history: 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 Date Name GA/Weeks Outcome Route Bth Weight Infant Gen Labor Lgth Anesthesia Del Locatn Provider FOB Unknown Katia 40 live - full term 6#5oz Female marcell al [place] Visit Details Expected Delivery Route/Plan Labor Preferences- CB/BF classes: desires just breath class labor support person: Indy and a thomas Sands labor intervention preferences: prefers minimal pain management options preferred: IA, hydrotherapy, limited intervention preferred, please ask for touch- incorporate for hands on, doesn't prefer pressure points. open to prayer, movement, breathing techniques. prefers more calm cut cord/dad catch: cord :yes, still nursing daughter PP control planned: discussed possible routes of delivery and associated risks: discussed possible delivery modalities and possible indications for each including R/B/A of , VAVD, and CS. questions answered. special requests: [] Plans Covid status: declined Flu vaccine: declined Tdap vaccine: declines Rhogam: na LARC form signed: yes Problem list reviewed and updated with the most current plan of care details and appropriate orders placed. Relevant counseling for the gestational age provided. Continue routine care and follow up unless otherwise noted in visit notes/problem list details OB Flowsheet Initial Weight: 100 lb Date -?-?-?-?-?-?-?-?-?-?-?-?- EGA Weight BP Urine Prot -?-?-?-?-?-?-?-?-?-?-?-?- Glucose FHR FuHt Pres Dilation -?-?-?-?-?-?-?-?-?-?-?-?- Effaced St Visit Note 06/18/23 -?-?-?-?-?-?-?-?-?-?-?-?- 9w 0d 100 lb 6 oz (+6 oz) 108/69 -?-?-?-?-?-?-?-?-?-?-?-?- 180 -?-?-?-?-?-?-?-?-?-?-?-?- LC- LMP con with CRL MONIQUE 01/21/2024. accepts genetic screening. 07/16/23 -?-?-?-?-?-?-?-?-?-?-?-?- 13w 0d 101 lb 4 oz (+1 lb 4 oz) 115/77 Negative -?-?-?-?-?-?-?-?-?-?-?-?- Negative 156 -?-?-?-?-?-?-?-?-?-?-?-?- LC- normal nob l abs. no concerns today. declines afp. had folate and vit b levels drawn with dr. andrea office will obtain results. mfm ultrasound ordered for anatomy LC- normal nob labs. did not yet obtain genetics. no concerns today. declines afp. had folate and vit b levels drawn with dr. andrea office will obtain results. mfm ultrasound ordered for anatomy 08/15/23 -?-?-?-?-?-?-?-?-?-?-?-?- 17w 2d 108 lb 2 oz (+8 lb 2 oz) 103/69 Negative -?-?-?-?-?-?-?-?-?-?-?-?- Negative 145 -?-?-?-?-?-?-?-?-?-?-?-?- SM- no vb crampi ng 09/08/23 -?-?-?-?-?-?-?-?-?-?-?-?- 20w 5d 113 lb (+13 lb) 117/75 Negative -?-?-?-?-?-?-?-?-?-?-?-?- Negative 140 -?-?-?-?-?-?-?-?-?-?-?-?- Lc- no vb, some right sided cramping, likely round ligament pain. normal anatomy scan. will be using fresh test for glucose 10/08/23 -?-?-?-?-?-?-?-?-?-?-?-?- 25w 0d 118 lb 2 oz (+18 lb 2 oz) 109/71 Negative -?-?-?-?-?-?-?-?-?-?-?-?- Negative 143 24 -?-?-?-?-?-?-?-?-?-?-?-?- JV- no lof, vagi nal bleeding or dec fm JV- no lof, vaginal bleeding or dec fm. doing fresh test. interested in birthing plan an classes. 10/30/23 -?-?-?-?-?-?-?-?-?-?-?-?- 28w 1d 124 lb 2 oz (+24 lb 2 oz) 106/75 Negative -?-?-?-?-?-?-?-?-?-?-?-?- Negative 135 28 -?-?-?-?-?-?-?-?-?-?-?-?- kw-no vb/lof/ctx . good fm. recommend to start iron. kw-no vb/lof/ctx. good fm. r ecommend to start iron. Declines tdap today. 11/14/23 -?-?-?-?-?-?-?-?-?-?-?-?- 30w 2d 125 lb 6 oz (+25 lb 6 oz) 116/78 Negative -?-?-?-?--?-?-?-?-?-?-?-?- Negative 150 30 -?-?-?-?-?-?-?-?-?-?-?-?- LC- no vb/ctx/lo f. good fm. reviewed pp care. to start on floradix, hasnt started an iron yet. 11/24/23 -?-?-?-?-?-?-?-?-?-?-?-?- 31w 5d 127 lb (+27 lb) 110/70 Negative -?-?-?-?-?-?-?-?-?-?-?-?- Negative 140 32 -?-?-?-?-?-?-?-?-?-?-?-?- MH-No VB, LOF. G ood FM. Denies concerns 12/11/23 -?-?-?-?-?-?-?-?-?-?-?-?- 34w 1d 125 lb (+25 lb) 119/86 -?-?-?-?-?-?-?-?-?-?-?-?- 140 34 -?-?-?-?-?-?-?-?-?-?-?-?- SM- no vb lof go od fm no regular ctx SM- no vb lof good fm no reg ular ctx discussed delivery preferences 12/22/23 -?-?-?-?-?-?-?-?-?-?-?-?- 35w 5d 127 lb 4 oz (+27 lb 4 oz) 111/78 Negative -?-?-?-?-?-?-?-?-?-?-?-?- Negative 145 35 -?-?-?-?-?-?-?-?-?-?-?-?- LC- no vb/ctx/lo f. good fm. preferences reviewed. desires low intervention 12/30/23 -?-?-?-?-?-?-?-?-?-?-?-?- 36w 6d 128 lb 2 oz (+28 lb 2 oz) 123/79 Negative -?-?-?-?-?-?-?-?-?-?-?-?- Negative 135 36 -?-?-?-?-?-?-?-?-?-?-?-?- KW- no vb/lof/ct x. good fm. good fm. GBS today. declines VE 01/05/24 -?-?-?-?-?-?-?-?-?-?-?-?- 37w 5d 129 lb (+29 lb) 114/70 Negative -?-?-?-?-?-?-?-?--?-?-?-?- Negative 138 36 -?-?-?-?-?-?-?-?-?-?-?-?- LC- no vb/ctx/lo f. good fm.declines VE today. 01/14/24 -?-?-?-?-?-?-?-?-?-?-?-?- 39w 0d 128 lb (+28 lb) 119/82 Negative -?-?-?-?-?-?-?-?-?-?-?-?- Negative 15 38 -?-?-?-?-?-?-?-?-?-?-?-?- JV- pt declines ve today. labor plan discussed. no lof, vaginal bleeding, or dec fm. 01/19/24 -?-?-?-?-?-?-?-?-?-?-?-?- 39w 5d 128 lb (+28 lb) 116/81 -?--?-?-?-?-?-?-?-?-?-?-?- 150 35 -?-?-?-?-?-?-?-?-?-?-?-?- Sm- no vb lof go od fm no regular ctx check growth US now NST FHR Rate Baby A Baseline: 130 ROS Constitutional Constitutional: Reports systems reviewed and no addt'l complaints, except as documented Eyes Eyes: Denies change in vision ENT HEENT: Reports systems reviewed and no addt'l complaints, except as documented; Denies headache(s) Cardiovascular Cardiovascular: Reports systems reviewed and no addt'l complaints, except as documented; Denies chest pain or dyspnea Respiratory/Chest Respiratory/Chest: Reports systems reviewed and no addt'l complaints, except as documented Gastrointestinal Gastrointestinal: Reports systems reviewed and no addt'l complaints, except as documented; Denies abdominal pain Genitourinary Genitourinary: Reports systems reviewed and no addt'l complaints, except as documented, contractions Details: present (irregular) and movement Details: present; Denies dysuria or genital lesions Musculoskeletal Musculoskeletal: Reports systems reviewed and no addt'l complaints, except as documented Neurologic Neurologic: Reports systems reviewed and no addt'l complaints, except as documented Endocrine Endocrinology: Reports systems reviewed and no addt'l complaints, except as documented Vital Signs Vital Signs Vital Signs: Weight Weight: 126 lb Body Mass Index (BMI) 23.8 Physical Exam Const alert, oriented x3, no apparent distress and healthy appearing HEENT normocephalic and moist oral mucous membranes Head and Scalp: atraumatic Neck full ROM, no lymphadenopathy, supple and thyroid normal General: trachea midline Lymph Lymphatic: no lymphadenopathy noted Chest inspection of chest normal Resp normal respiratory effort Cardio regular rate GI normal to inspection, nondistended, normoactive bowel sounds, soft to palpation and non-tender Inspection: gravid external exam normal Skin no rashes or lesions noted Psych mental status grossly normal Labs Labs Labs: Blood Type A POSITIVE Antibody Screen NEGATIVE Hct 40.7 % (37-47) Hgb 13.7 g/dL (12.0-15.0) Pap Smear Negative Syphilis Total Ab Non-reactive VZV IgG Antibody 1038 index (Immune >165) Rubella IgG Antibody Reactive (Nonreactive) Hep Bs Antigen Non-Reactive (Nonreactive) Hepatitis C Antibody Non-Reactive (Nonreactive) Chlamydia DNA (RACHEL) Negative (Negative) N.gonorrhoeae DNA (RACHEL) Negative (Negative) HIV 1&2 Antibody Non-Reactive (Nonreactive) Glucose 1 Hr 50 gm 125 mg/dL (70-140) Miscellaneous Test Assessment & Plan (1) AMA (advanced maternal age) multigravida 35+: COMMENT: growth US ordered. nst and counseled regarding options and patient prefers expectant management if reassuring, plan IOL by 41 if reassuring (2) Celiac disease: COMMENT: vit d=39, B12 (690) and folate completed with Dr. Andrea office early may 2023 with [facility]. (3) : QUALIFIERS: Weeks of gestation: 39 weeks Qualified Code(s): Z3A.39 - 39 weeks gestation of COMMENT: GBS neg, anatomy normal. genetic screening declined, carrier and afp declined. (4) Supervision of high-risk : QUALIFIERS: Trimester: third trimester Qualified Code(s): O09.93 - Supervision of high risk , unspecified, third trimester COMMENT: PRR MONIQUE 01/21/2024 SURPRISE BABY!! PC: Katia : Nirmala PLAN: Plan admit IAL delivered precipitously
--- NOTE | 2024-01-29 17:13 | EX.PCM.OBRPT ---
Assessment & Plan (1) Status post vaginal delivery: COMMENT: SM precipitous Maternal Data Information MONIQUE Calculator Estimated Delivery Date Method Current WG Current Estimate 01/21/24 LMP (Certain) 41w 1d Vaginal Delivery Operative Information Date of Procedure: 01/23/24 Pre-Operative Diagnosis: see a/p diagnoses Post-Operative Diagnosis: same Surgery / Procedure Performed: Spontaneous Vaginal Delivery Type of Anesthesia: Local with 1% Lidocaine Special Medications: none Estimated Blood Loss: 200 Fluids Replaced: crystalloid Findings Description of Procedure: Patient began pushing and delivered the head in the YONY presentation. The head was delivered atraumatically . The anterior and posterior shoulders delivered without complication followed by the rest of the infant and the was placed on the maternal abdomen. Delayed cord clamping was employed for approximately 60 seconds. Cord was clamped and cut and gentle traction was applied to the cord and the placenta delivered spontaneously immediately following it was noted to be intact with three-vessel cord. The perineum and vagina were inspected and noted to have a first degree perineal laceration which was repaired in the usual fashion with 3-0 vicryl rapide after injecting with lidocaine. . EBL was 200 cc. Patient and infant tolerated delivery well. Amniotic Fluid Description: Clear Placental Delivery Description: Spontaneous Placenta Disposition: [facility] Cord Vessel Description: 3 Vessels Cord Entanglement: None Delayed Cord Clamping: Yes Post Vaginal Delivery Medications Given After Delivery: IV Pitocin Episiotomy Description: None Complication Complications: None Procedures Urinary/Genital [id number]: [id number] Vaginal Delivery [facility]
== END 2024-01-24 14:25 | disposition home or self-care (01) | DRG 807 ==
PROVIDERS: Admitting Provider Obstetrics & Gynecology; PCP Family Medicine; Referring Provider Obstetrics & Gynecology; Visit Provider Obstetrics & Gynecology
DX: O62.3 Precipitate labor (principal); Z37.0 Single live birth; K90.0 Celiac disease; O99.62 Diseases of the digestive system complicating childbirth; O26.843 Uterine size-date discrepancy, third trimester; O70.0 First degree perineal laceration during delivery; O99.02 Anemia complicating childbirth; Z3A.39 39 weeks gestation of pregnancy
CPT/HCPCS: 59025; 59050; 85025; 86780; 86850; 86900; 86901; 99221; G0378

== ENCOUNTER → 2024-04-06 | Outpatient (CLI) | payer OTHER, SELFPAY ==
[2024-04-06 10:59] LABS: Erythrocyte Sedimentation Rate 18 mm/hr (0-30)
[2024-04-06 11:01] LABS: Absolute Lymphocyte Count 1.25 X10^3/uL (0.83-4.51); Absolute Neutrophil Count 3.5 X10^3/uL (2.0-7.7); Basophil# 0.03 X10^3/uL; Basophil% 0.5 % (0-1); Eosinophil# 0.21 X10^3/uL; Eosinophils% 3.8 % (0-5); Ferritin 78 ng/mL (8-252); Hematocrit 37.4 % (37-47); Hemoglobin 12.4 g/dL (12.0-15.0); Iron 25 ug/dL (50-170); Iron Binding Capacity,Total 317 ug/dL (250-450); LDH 153 U/L (84-246); Lymphocyte # 1.25 X10^3/ul (0.83-4.51); Lymphocyte % 22.8 % (19-41); Mean Corp Hgb Conc 33.2 g/dL (32-36); Mean Corpuscular Hgb 30.6 pg (27.0-32.0); Mean Corpuscular Volume 92.3 fL (81-99); Mean Platelet Vol. 11.2 fl (6.2-12.0); Monocyte# 0.47 X10^3/uL; Monocyte% 8.6 % (0-10); NRBC Flagged by Analyzer 0 % (0-5); Neutrophil # 3.52 X10^3/uL (2.7-7.7); Neutrophil % 64.1 % (47-70); Platelet Count 232 K/mm3 (150-450); RBC Distribution Width CV 11.9 % (11.6-14.6); RBC Distribution Width SD 40.2 fl (35.1-43.9); Red Blood Count 4.05 M/mm3 (4.2-5.4); White Blood Count 5.5 K/mm3 (4.4-11.0)
[2024-04-06 11:02] LABS: Vitamin B12 1016 pg/mL (211-911)
[2024-04-09 10:09] LABS: Anti-Centromere B Ab <0.2 AI (0.0-0.9); Anti-Chromatin <0.2 AI (0.0-0.9); Anti-Jo <0.2 AI (0.0-0.9); Anti-Scleroderma-70 AB <0.2 AI (0.0-0.9); Anti-dsDNA Ab 1 IU/mL (0-9); Beef <0.10 kU/L (Class 0); Chocolate <0.10 kU/L (Class 0); Codfish <0.10 kU/L (Class 0); Corn <0.10 kU/L (Class 0); Egg, Whole <0.10 kU/L (Class 0); Milk (Cow) <0.10 kU/L (Class 0); Mussels <0.10 kU/L (Class 0); Peanut <0.10 kU/L (Class 0); Pork <0.10 kU/L (Class 0); RNP Ab <0.2 AI (0.0-0.9); SJOGREN'S Anti-SS-A test < 0.2 AI (0.0-0.9); SJOGREN'S Anti-SS-B test < 0.2 AI (0.0-0.9); Salmon <0.10 kU/L (Class 0); Shrimp <0.10 kU/L (Class 0); Smith Ab <0.2 AI (0.0-0.9); Soybean <0.10 kU/L (Class 0); Tuna <0.10 kU/L (Class 0); Wheat <0.10 kU/L (Class 0)
[2024-04-09 16:09] LABS: ACCA 5 units (0-90); ALCA 42 units (0-60); AMCA 24 units (0-100); Albumin 3.4 g/dL (2.9-4.4); Alpha-1-Globulins 0.2 g/dL (0.0-0.4); Alpha-2-Globulins 0.7 g/dL (0.4-1.0); Cytoplasmic Ab (C-ANCA) <1:20 titer (Neg:<1:20); Endomysial Antibody IgA Negative (Negative); Gamma Globulin 1.2 g/dL (0.4-1.8); Immunoglobulin A 105 mg/dL (87-352); Immunoglobulin E 113 IU/mL (6-495); Immunoglobulin G 1223 mg/dL (586-1602); Immunoglobulin M 180 mg/dL (26-217); PROEL- TOTAL PROTEIN 6.3 g/dL (6.0-8.5); Perinuclear Ab (P-ANCA) <1:20 titer (Neg:<1:20); gASCA 6 units (0-50); t-Transglutaminase IgA <2 U/mL (0-3)
== END | disposition home or self-care (01) ==
LOC: LAB 10:14
PROVIDERS: PCP Family Medicine; Referring Provider Internal Medicine Gastroenterology; Visit Provider Internal Medicine Gastroenterology
DX: R15.2 Fecal urgency (principal)
CPT/HCPCS: 36415; 82607; 82652; 82728; 82784; 82785; 83516; 83540; 83550; 83615; 84165; 85025; 85652; 86003; 86005; 86036; 86140; 86225; 86235; 86255; 86256; 86334; 86671

== ENCOUNTER 2024-07-06 07:30 | Outpatient (RCR) | payer OTHER, SELFPAY ==
--- NOTE | 2024-04-21 18:09 | HP.OTEVAL_ITS ---
Patient's Visit Information Visit Information Visit Information: ROCHELLE LAUREANO is a 33 year old F, referred to Occupational Therapy by Dr. Lachelle Mo MD, with a diagnosis of B hand pain. Date of Evaluation: 04/21/24 Occupational Therapist: Aminta Chaudhry Subjective Subjective: This 33 year old female arrives due to B hand pain which developed after child over a period of time. pt has toddler which is 3 and who is 3 months old. pt states she feels it more on the R side versus L. 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 pt is R hand dominant. pt reports she is which may play a role into onset of pain in hands. Pt has had tendinitis in the past approx 10 years ago which she recieved therapy for. Objective Objective/Observation: Pt arrives this date with hand pain mostly in R hand. denies resting pain only with certain movements. ROM ROM Comments: BUE AROM WFL Strength Shoulder: n/a Elbow: n/a Retort Feeder Ground Bone: R and L 40 pounds Lateral Pinch: R 4 L 5 pounds Tripod Pinch: R 2 L 2 pounds Edema Other: none noted Quick DASH-Disab of Arm,Shoulder& Hand Quick DASH Score: 15.9075 Goals Goal:: Pt will demonstrate/ verbalize 100% accuracy in proper joint protection and positioning during day to day activities Goal:: pt will demonstrate improvement in quick dash score by 3 or more points (15.9) in order to use hand functionally again Goal:: pt will demonstrate 100% knowedlge accuracy in completion of radial side massage by third session pt will demonstrate proper wear and fit of B hand bracing in order to decrease pain by third session pt will demonstrate 100% accuracy in stretching and strengthening HEP by end of POC Goal:No pain with affected hand use: Yes Goal:Full use of affected hand in daily activities including work: Yes Rehabilitation General Assessment: This 33 year old female arrives with referral from primary for B hand pain. Pt presents with pain that comes and goes with certain movements/activites. pt + during UD and wrist flexion for dequervains. Pt states she is currently breast feeding at home has a 10 week old son and 3 year old daughter which may have lead to symptomology. pt would benefit from OT services 1-2x a week for 4-6 weeks in order to decreased pain, bracing, training in massage as well as stretching and strengthening once appropriate. Rehabilitation Potential: Good Anticipated Interventions Anticipated Interventions: A/AAROM/PROM, Strengthening, Triggerpoint Release, Modalities, Orthoses, Joint Protection/Energy Conservation, Education re assistive Equipment, Education re Diagnosis, Education re Self Massage Techniques and Home Program Visit Plan Frequency: 1-2x /Week Duration: 4-6 Weeks General Plan: AROM/AAROM/PROM stretch strengthen trigger point release modalities positioning ed and protection TEXT: Thank you for the opportunity to evaluate your patient. For Medicare and Medicare HMO plans, please review the plan of care and approve it. It will need to be FAXED BACK to us at [phone] for Medicare purposes. Please let me know if there are questions or concerns regarding this plan of care. Physician Signature: Date:
--- NOTE | 2024-07-06 09:06 | HP.OTDCSUM ---
Discharge Summary D/C Summary: It has been my pleasure to treat ROCHELLE LAUREANO under orders from Dr. Lachelle Mo MD, for the diagnosis of B hand pain for a total of 10 visit(s). Please see the following information for a summary of their discharge status. Overall Improvement % Improvement: 80 Objective Objective/Function: R 43 L 40# R and L 6# R and L 5# Goals Patient Goals: Regain Strength, Decrease Pain, Decrease Swelling/Stiffness, Use Hand/Wrist/Arm Normally Again, Resume Former Household Responsibilities (Cooking,Cleaning,Yard, etc.) and Resume Hobbies Goal:: Pt will demonstrate/ verbalize 100% accuracy in proper joint protection and positioning during day to day activities GOAL MET Goal:: pt will demonstrate improvement in quick dash score by 3 or more points (15.9) in order to use hand functionally again NOT MET now (15.9) Goal:: pt will demonstrate 100% knowedlge accuracy in completion of radial side massage by third session GOAL MET pt will demonstrate proper wear and fit of B hand bracing in order to decrease pain by third session pt will demonstrate 100% accuracy in stretching and strengthening HEP by end of POC Goal:No pain with affected hand use: Yes Goal:Full use of affected hand in daily activities including work: Yes Plan Plan: isometric wrist postural and neck stretch R extensor tendon stretch D/C Information Discharge Comments: This 34 year old female seen for dx of B hand pain. pt seen for OT services for pain management provision of stretches isometrics light strengthening to more resistive strengthening on BTE. pt with no pain and tolerating stretches and exercises well discharge at this time pt to carryover at home. d/c sentence: If there are questions or concerns regarding this patient's occupational therapy, please fell free to call me at [phone]. Thank you for the referral of this patient. Sincerely, Aminta Chaudhry
--- NOTE | 2024-07-06 09:07 | HP.OT.NRP ---
Patient Information Patient Information: ROCHELLE LAUREANO was seen in my office for initial evaluation on 04/21/24. The following Plan of Care was established for this patient: POC Established Initial Frequency: 1-2x /Week Initial Duration: 4-6 Weeks Plan: isometric wrist postural and neck stretch R extensor tendon stretch Anticipated Interventions Anticipated Interventions: A/AAROM/PROM, Strengthening, Triggerpoint Release, Modalities, Orthoses, Joint Protection/Energy Conservation, Education re assistive Equipment, Education re Diagnosis, Education re Self Massage Techniques and Home Program Last Seen Last Seen: This patient was last seen in our office 07/06/24. Pertinent comments regarding their Occupational therapy will appear below: this 34 year old female with dx of B hand pain seen by OT for pain management ed provided and completion of joint protection, stretches, progression to isometric to gentle strengthening to BTE. pt discharge at this time to carryover strengthening at home. pt in agreeance and no pain at this time. At this point I will be discontinuing this patient from occupational therapy. I would be happy to see this patient again in the future if found appropriate by the physician. Thank you! Aminta Chaudhry
== END 2024-07-06 19:00 | disposition home or self-care (01) ==
LOC: OT 07:30
PROVIDERS: PCP Family Medicine; Referring Provider Family Medicine; Visit Provider Family Medicine
DX: M79.643 Pain in unspecified hand (principal)
CPT/HCPCS: 97035; 97110; 97140; 97165; 97530